=== PATIENT | female | born 1955 | race Caucasian/White ===

== ENCOUNTER 2017-03-25 03:16 | Emergency (ER) | payer SELFPAY ==
[~2017-03-25] VITALS: Ht 165.1 cm; Wt 103.5 kg
[~2017-03-25 03:16] MED LIST: BACT800T5 PO; CEPH500C3 PO; HYDR-3533 PO
[2017-03-25 03:22] VITALS: BP 175/85; PULSE 90; RESP 20; TEMP 97.9; O2SAT 97
[2017-03-25] MEDS ORDERED: LIDOCAINE 1%/EPINEPHrine 1:100,000 SOLN 20 ML VIAL INFIL ONE (03:45)
[2017-03-25] MEDS ORDERED: BACT800T5 PO (03:53)
[2017-03-25] MEDS ORDERED: CLIN1CAP5 PO (03:53)
[2017-03-25] MEDS ORDERED: NORC5TAB PO (03:53)
--- NOTE | 2017-03-25 03:53 | PD ---
HPI Chief Complaint: neck pain Time Seen by Provider: 03:26 Travel History International Travel<30 days: No Contact w/Intl Traveler<30days: No Traveled to known affect area: No History of Present Illness HPI 61-year-old female complains of neck pain. Patient states that she has increasing redness swelling tenderness posterior aspect of the right-sided neck for the past several days. Patient denies any fever chills. Patient denies any injury. Patient states that she has some drainage from the wound tonight. 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 Reported Meds & Prescriptions Reported Meds & Active Scripts Active Lortab 5 mg/325 mg (Hydrocodone/Acetaminophen 5 mg/325 mg) 1 Tab 1 Tab PO Q4H PRN Bactrim DS (Sulfamethoxazole-Trimethoprim DS) 1 Tab Tab 1 Tab PO BID 10 Days Keflex (Cephalexin Monohydrate) 500 Mg Cap 500 Mg PO Q6 10 Days Review of Systems General / Constitutional: No: Fever Eyes: No: Visual changes HENT: Positive: Neck Pain, No: Headaches Cardiovascular: No: Chest Pain or Discomfort Respiratory: No: Shortness of Breath Gastrointestinal: No: Abdominal Pain Genitourinary: No: Dysuria Musculoskeletal: No: Pain Skin: No Rash Neurologic: No: Weakness Psychiatric: No: Depression Endocrine: No: Polydipsia Hematologic/Lymphatic: No: Easy Bruising Physical Exam Narrative GENERAL: Well-nourished, well-developed patient. SKIN: Focused skin assessment warm/dry. HEAD: Normocephalic. EYES: No scleral icterus. No injection or drainage. NECK: Supple, trachea midline. No JVD or lymphadenopathy. CARDIOVASCULAR: Regular rate and rhythm without murmurs, gallops, or rubs. RESPIRATORY: Breath sounds equal bilaterally. No accessory muscle use. GASTROINTESTINAL: Abdomen soft, non-tender, nondistended. MUSCULOSKELETAL: No cyanosis, or edema. BACK: Nontender without obvious deformity. No CVA tenderness. Patient has an area redness swelling induration posterior aspect of the neck. Data Data Last Documented VS Vital Signs Date Time Temp Pulse Resp B/P (MAP) Pulse Ox O2 Delivery O2 Flow Rate FiO2 03/25/17 03:22 97.9 90 20 175/85 (115) 97 Orders Orders Lidocai-Epi 1%-1:100,000 Inj (Xylocaine- (03/25/17 03:45) Sulfamet-Trimeth Ds 800-160 Mg (Bactrim (03/25/17 04:00) MDM Medical Decision Making Medical Screen Exam Complete: Yes Emergency Medical Condition: Yes Differential Diagnosis Differential diagnosis including cellulitis, abscess. Narrative Course 61-year-old female with pain swelling and redness of the neck area. Patient refused tetanus shot. Bactrim DS one tablet by mouth given. Lortab 5/325, one tablet by mouth given. Procedures Procedure Narrative 1% lidocaine with epinephrine local anesthesia. Betadine wash. Small incision was made on the abscess with #11 scalpel. A small amount of pus recovered. 0.25 inch packing applied. Dressing applied. Diagnosis Primary Impression: Neck abscess Additional Instructions: Wound care daily. Take antibiotics as directed. Return in 2 days for recheck and packing removal. Med/Other Pt SpecificInfo: Prescription(s) given Scripts Hydrocodone-Acetaminophen ([place]) 5-325 mg Tab 1 TAB PO Q6H Y for PAIN, #20 TAB 0 Refills Prov: Jay Perales MD 03/25/17 Clindamycin (Clindamycin) 150 Mg Cap 2 TAB PO Q6H for Infection, #80 CAP 0 Refills Prov: Jay Perales MD 03/25/17 Sulfamethoxazole-Trimethoprim (Bactrim DS) 800-160 Mg Tab 1 TAB PO BID for Infection, #20 TAB 0 Refills Prov: Jay Perales MD 03/25/17 Disposition: 01 DISCHARGE HOME Condition: Stable Jay Perales MD Mar 25, 2017 03:53
[2017-03-25] MEDS ORDERED: ACETAMINOPHEN/HYDROcodone 325 MG/5 MG TAB PO ONE (04:00)
[2017-03-25] MEDS ORDERED: SULFAMETHOXAZOLE-TRIMETHOPRIM DS 800-160 MG TAB PO ONE (04:00)
[2017-03-25 05:02] VITALS: BP 158/74
== END 2017-03-25 05:04 | disposition home or self-care (01) ==
LOC: PHED 03:16
DX: L02.11 Cutaneous abscess of neck (principal)
CPT/HCPCS: 10060

== ENCOUNTER 2017-03-26 14:43 | Emergency (ER) | payer SELFPAY ==
[~2017-03-26] VITALS: Ht 165.1 cm; Wt 103.3 kg
[~2017-03-26 14:43] MED LIST changes: -CEPH500C3 PO; +CLIN1CAP5 PO; -HYDR-3533 PO; +NORC5TAB PO
[2017-03-26 14:47] VITALS: BP 141/88; PULSE 80; RESP 18; TEMP 97.3; O2SAT 97
--- NOTE | 2017-03-26 15:11 | PD ---
HPI Chief Complaint: Wound/Suture/Staple Re-Check Time Seen by Provider: 15:11 Travel History International Travel<30 days: No Contact w/Intl Traveler<30days: No Traveled to known affect area: No History of Present Illness HPI 61-year-old female here for abscess recheck and packing removal. Patient was seen and evaluated yesterday and had abscess incised and drained. She denies fever, chills or increasing pain. Reports the area is improving. 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 SKIN: Focused skin assessment warm/dry. HEAD: Normocephalic. EYES: No scleral icterus. No injection or drainage. NECK: Supple, trachea midline. No JVD or lymphadenopathy. No midline cervical spine tenderness. Patient has a healing abscess to the posterior neck at the hairline. Packing was removed. The area has a small around of induration without fluctuance or surrounding cellulitis. CARDIOVASCULAR: Regular rate and rhythm without murmurs, gallops, or rubs. RESPIRATORY: Breath sounds equal bilaterally. No accessory muscle use. GASTROINTESTINAL: Abdomen soft, non-tender, nondistended. Data Data Last Documented VS Vital Signs Date Time Temp Pulse Resp B/P (MAP) Pulse Ox O2 Delivery O2 Flow Rate FiO2 03/26/17 14:55 17 03/26/17 14:47 97.3 80 141/88 (105) 97 MDM Medical Decision Making Medical Screen Exam Complete: Yes Emergency Medical Condition: Yes Differential Diagnosis Packing removal, wound recheck, abscess, cellulitis Narrative Course 61-year-old female presents emergency department for evaluation of abscess recheck and packing removal. Patient denies fever or chills or increasing pain. Patient has a healing abscess to the posterior neck. Packing was removed. There is no surrounding cellulitis. Patient instructed to continue taking the antibiotics and follow up PCP. Return precautions discussed. Patient verbalizes understanding and agrees to plan. Diagnosis Primary Impression: Abscess Referrals: Primary Care Physician Additional Instructions: Continue the antibiotics as prescribed. Washing area with soap and water daily. Continue to cover the area with a dry dressing. Return to emergency department if he developed new or worsening symptoms Disposition: 01 DISCHARGE HOME Condition: Stable Shaila Medeiros Mar 26, 2017 15:11
== END 2017-03-26 15:24 | disposition home or self-care (01) ==
LOC: PHEFT 14:43
DX: L02.11 Cutaneous abscess of neck (principal)
CPT/HCPCS: 99281